=== PATIENT | male | born 1935 | race Caucasian/White ===

== ENCOUNTER → 2017-03-28 | Outpatient (CLI) | payer MEDICARE ==
[~2017-03-28] MED LIST: REGADENOSON 0.4 MG/5 ML SYRINGE ONE
== END | disposition home or self-care (01) ==
LOC: CFH 12:11
PROVIDERS: ATTEND Internal Medicine Cardiovascular Disease
DX: I48.1 Persistent atrial fibrillation (principal); R94.31 Abnormal electrocardiogram [ECG] [EKG]; I10 Essential (primary) hypertension
CPT/HCPCS: 78452; 93017; A9502; J2785

== ENCOUNTER → 2017-06-21 | Outpatient (CLI) | payer MEDICARE ==
[2017-06-21 15:48] LABS: ASPARTATE AMINO TRANSFERASE 25 U/L (15-37); BLOOD UREA NITROGEN 15 mg/dL (7-18)
== END | disposition home or self-care (01) ==
LOC: CFH 13:24
PROVIDERS: ATTEND Internal Medicine Cardiovascular Disease
DX: E78.2 Mixed hyperlipidemia (principal); I10 Essential (primary) hypertension; I48.0 Paroxysmal atrial fibrillation; I48.1 Persistent atrial fibrillation
CPT/HCPCS: 36415; 80053; 85025

== ENCOUNTER 2017-08-08 11:32 | Inpatient (IN) | payer MEDICARE ==
[2017-08-03 14:49] VITALS: BP 153/76
[~2017-08-08] VITALS: Ht 180.3 cm; Wt 95.7 kg
[~2017-08-08 11:32] MED LIST changes: +ALLO300T PO; +ATOR20TA PO; +BUPIVACAINE/PF 0.25% ONE; +EPINEPHRINE 1 MG/ML, 1ML ONE; +HYDR12.58 PO; +IRBE300T16 PO; +KETOROLAC 60 MG/2 ML ONE; +POTASSIUM PO; -REGADENOSON 0.4 MG/5 ML SYRINGE ONE; +RIVA20TA PO; +ROPIvacaine/PF 0.2%, 20 ML ONE; +SODIUM CHLORIDE 0.9% 50 ML ONE; +TRANEXAMIC ACID 100 MG/ML, 10ML ONE
[2017-08-08] MEDS ORDERED: MIDAZOLAM 1 MG/ML, 2ML ONE (11:36)
[2017-08-08] MEDS ORDERED: FENTANYL PF 100 MCG/2ML ONE ×3 (11:36→17:01)
[2017-08-08] MEDS: VANCOMYCIN PER PHARMACY MC STA ×2 (11:59→13:20)
[2017-08-08] MEDS ORDERED: LACTATED RINGERS 1,000 ML IV SCH (12:38)
[2017-08-08] MEDS ORDERED: VANCOMYCIN 1,500 MG in SODIUM CHLORIDE 0.9% 250 ML IV ONE (13:00)
[2017-08-08] MEDS ORDERED: LIDOCAINE 1%, 2ML SQ PRN (13:00)
[2017-08-08] MEDS ORDERED: VANCOMYCIN 1,000 MG ONE (13:22)
[2017-08-08] MEDS ORDERED: CEFAZOLIN 1,000 MG ONE (13:34)
[2017-08-08] MEDS ORDERED: SUCCINYLCHOLINE 20 MG/ML, 10ML ONE (13:34)
[2017-08-08] MEDS ORDERED: PROPOFOL 10 MG/ML, 20ML ONE (13:34)
[2017-08-08] MEDS ORDERED: ONDANSETRON 2MG/ML, 2ML ONE (13:34)
[2017-08-08] MEDS ORDERED: DEXAMETHASONE 4 MG/ML, 5ML ONE (13:34)
[2017-08-08] MEDS ORDERED: PHENYLEPHRINE 10 MG/ML ONE (13:34)
[2017-08-08] MEDS ORDERED: HYDROmorphone 2 MG/ML, 1ML ONE (14:01)
[2017-08-08] MEDS ORDERED: hydrALAzine 20 MG/ML, 1ML IV PRN (15:00)
[2017-08-08] MEDS ORDERED: PROMETHAZINE 25 MG/ML, 1ML IV PRN (15:00)
[2017-08-08] MEDS ORDERED: ONDANSETRON 2MG/ML, 2ML IVPush PRN (15:00)
[2017-08-08] MEDS ORDERED: MIDAZOLAM 1 MG/ML, 2ML IV PRN (15:00)
[2017-08-08] MEDS ORDERED: ALBUTEROL/IPRATROPIUM 2.5MG/0.5MG, 3 ML NPPB PRN (15:00)
[2017-08-08] MEDS ORDERED: ACETAMINOPHEN 325 MG TABLET PO PRN (15:00)
[2017-08-08] MEDS ORDERED: OXYcodone 5 MG/5 ML ORAL.SOL UDC PO PRN (15:00)
[2017-08-08] MEDS ORDERED: HYDROmorphone 1 MG/ML, 1ML IV PRN ×2 (15:00→17:00)
[2017-08-08] MEDS ORDERED: LABETALOL 5MG/ML, 20ML IV PRN (15:00)
[2017-08-08] MEDS: D5%-0.45% NACL 1,000 ML IV SCH (16:53)
[2017-08-08] MEDS ORDERED: VANCOMYCIN PER PHARMACY MC PRN (17:00)
[2017-08-08] MEDS ORDERED: SCOPOLAMINE PATCH, 1.5MG PATCH.TD72 TD PRN (17:00)
[2017-08-08] MEDS ORDERED: PROMETHAZINE 12.5 MG SUPP PR PRN (17:00)
[2017-08-08] MEDS ORDERED: BISACODYL 10 MG SUPP PR PRN (17:00)
[2017-08-08] MEDS ORDERED: HYDROcodone/APAP 5/325 TABLET PO PRN (17:00)
[2017-08-08] MEDS ORDERED: SENNA/DOCUSATE TABLET PO PRN (17:00)
[2017-08-08] MEDS ORDERED: DIPHENHYDRAMINE 25 MG CAPSULE PO PRN (17:00)
[2017-08-08] MEDS ORDERED: DIAZEPAM 5 MG TABLET PO PRN (17:00)
[2017-08-08] MEDS ORDERED: MAGNESIUM HYDROXIDE 8%, 30ML UDC PO PRN (17:00)
[2017-08-08] MEDS ORDERED: ALUMINUM/MAG/SIMETHICONE 30 ML UDC PO PRN (17:00)
[2017-08-08] MEDS ORDERED: ONDANSETRON 2MG/ML, 2ML IV PRN (17:00)
[2017-08-08] MEDS ORDERED: LORazepam 1MG TABLET PO PRN (17:00)
[2017-08-08] MEDS ORDERED: ONDANSETRON 4 MG TABLET PO PRN (17:00)
[2017-08-08] MEDS ORDERED: OXYcodone IR 5MG TABLET PO PRN (17:00)
[2017-08-08] MEDS ORDERED: HYDROmorphone 1 MG/ML, 1ML ONE (17:01)
[2017-08-08] MEDS ORDERED: ACETAMINOPHEN 650 MG/20.3 ML UDC ONE (17:02)
[2017-08-08] MEDS ORDERED: OXYcodone 5 MG/5 ML ORAL.SOL UDC ONE (17:02)
[2017-08-08] MEDS ORDERED: TRANEXAMIC ACID 1,000 MG in SODIUM CHLORIDE 0.9% 100 ML IVPB ONE (17:05)
[2017-08-08] MEDS: TAMSULOSIN 0.4 MG CAP.ER.24H PO SCH (17:10)
[2017-08-08] MEDS: FENTANYL PF 100 MCG/2ML IV PRN ×2 (17:27→17:58)
[2017-08-08] MEDS ORDERED: hydrALAzine 20 MG/ML, 1ML ONE (17:29)
[2017-08-08] MEDS ORDERED: PHARMACOKINETIC CONSULTATION MC ONE (19:00)
[2017-08-08] MEDS ORDERED: PHARMACOKINETIC MONITORING MC PRN (19:00)
[2017-08-08 19:35] VITALS: BP 130/61
[2017-08-08] MEDS: CEFAZOLIN PMX 2GM/50ML 50 ML IVPB SCH (19:55)
[2017-08-08] MEDS: DOCUSATE 100 MG CAPSULE PO SCH ×2 (21:00→21:14)
[2017-08-08] MEDS ORDERED: ZOLPIDEM 5MG TABLET PO PRN (21:00)
[2017-08-08] MEDS: ATORVASTATIN 20 MG TABLET PO SCH (21:14)
[2017-08-09] MEDS: D5%-0.45% NACL 1,000 ML IV SCH ×3 (00:58→20:11)
[2017-08-09 02:32] VITALS: BP 109/59
[2017-08-09] MEDS: CEFAZOLIN PMX 2GM/50ML 50 ML IVPB SCH ×3 (03:53→20:11)
[2017-08-09 05:21] LABS: BLOOD UREA NITROGEN 31 mg/dL (7-18)
[2017-08-09 08:00] VITALS: BP 130/69
[2017-08-09] MEDS: ALLOPURINOL 300 MG TABLET PO SCH (08:55)
[2017-08-09] MEDS: DOCUSATE 100 MG CAPSULE PO SCH ×2 (08:55→20:11)
[2017-08-09] MEDS: RIVAROXABAN 20 MG TABLET PO SCH (08:55)
[2017-08-09] MEDS: HYDROCHLOROTHIAZIDE 12.5 MG CAPSULE PO SCH (08:55)
[2017-08-09] MEDS: TAMSULOSIN 0.4 MG CAP.ER.24H PO SCH (08:56)
[2017-08-09] MEDS ORDERED: RIVAROXABAN 10 MG TABLET PO SCH (09:00)
[2017-08-09] MEDS ORDERED: VANCOMYCIN 1,700 MG in SODIUM CHLORIDE 0.9% 250 ML IV SCH (12:00)
[2017-08-09 14:00] VITALS: BP 116/47
[2017-08-09] MEDS: KETOROLAC 30 MG/1 ML IV SCH (17:52)
[2017-08-09] MEDS: ATORVASTATIN 20 MG TABLET PO SCH (20:11)
[2017-08-09 20:58] VITALS: BP 112/62
[2017-08-10] MEDS: KETOROLAC 30 MG/1 ML IV SCH ×2 (01:00→09:14)
[2017-08-10 02:55] VITALS: BP 124/68
[2017-08-10] MEDS: D5%-0.45% NACL 1,000 ML IV SCH (04:23)
[2017-08-10] MEDS: CEFAZOLIN PMX 2GM/50ML 50 ML IVPB SCH ×2 (04:23→12:06)
[2017-08-10 07:40] VITALS: BP 144/83
[2017-08-10] MEDS: RIVAROXABAN 20 MG TABLET PO SCH (09:14)
[2017-08-10] MEDS: HYDROCHLOROTHIAZIDE 12.5 MG CAPSULE PO SCH (09:14)
[2017-08-10] MEDS: TAMSULOSIN 0.4 MG CAP.ER.24H PO SCH (09:14)
[2017-08-10] MEDS: DOCUSATE 100 MG CAPSULE PO SCH (09:14)
[2017-08-10] MEDS: ALLOPURINOL 300 MG TABLET PO SCH (09:14)
[2017-08-10] MEDS ORDERED: ASPI-496 PO (09:52)
[2017-08-10] MEDS ORDERED: AMOXICILLIN 500 MG CAPSULE PO SCH (12:00)
[2017-08-10 12:10] VITALS: BP 122/66
[2017-08-10] MEDS ORDERED: TRAM50TA2 PO (12:47)
[2017-08-10] MEDS ORDERED: AMOX-291 PO (12:48)
== END 2017-08-10 13:10 | disposition home health service (06) | DRG 467 ==
LOC: ORIP 11:32 → 4NOR 18:30 → DCLOUNGE 08-10 12:45
PROVIDERS: ADMIT Orthopaedic Surgery; ATTEND Orthopaedic Surgery
PROC: 0SRC0J9 Replacement of Right Knee Joint with Synthetic Substitute, Cemented, Open Approach (ICD-10-PCS; 2017-08-08)
PROC: 0SPC08Z Removal of Spacer from Right Knee Joint, Open Approach (ICD-10-PCS; principal; 2017-08-08 14:30)
DX: Z47.33 Aftercare following explantation of knee joint prosthesis (principal); E44.1 Mild protein-calorie malnutrition; N17.9 Acute kidney failure, unspecified; D62 Acute posthemorrhagic anemia; N18.3 Chronic kidney disease, stage 3 (moderate); I12.9 Hypertensive chronic kidney disease with stage 1 through stage 4 chronic kidney disease, or unspecified chronic kidney disease; Z87.891 Personal history of nicotine dependence; Z98.890 Other specified postprocedural states; Y83.1 Surgical operation with implant of artificial internal device as the cause of abnormal reaction of the patient, or of later complication, without mention of misadventure at the time of the procedure; E78.5 Hyperlipidemia, unspecified
CPT/HCPCS: 36415; 80048; 82040; 85018; 87070; 87075; 87205; C1713; J0171; J0690; J1100; J1170; J1885; J2250; J2405; J2704; J2795; J3010; J3370; J3490; C1776; J0330; J0360; J2370; J7050; J7120

== ENCOUNTER 2019-02-26 17:04 | Inpatient (IN) | payer MEDICARE ==
[~2019-02-26] VITALS: Ht 180.3 cm; Wt 97.4 kg
[~2019-02-26 17:04] MED LIST changes: +AMOX-291 PO; +ASPI-496 PO; -BUPIVACAINE/PF 0.25% ONE; -EPINEPHRINE 1 MG/ML, 1ML ONE; -HYDR12.58 PO; +HYDROCHLOROTH12.5 MG PO; -KETOROLAC 60 MG/2 ML ONE; -ROPIvacaine/PF 0.2%, 20 ML ONE; -SODIUM CHLORIDE 0.9% 50 ML ONE; +TRAM50TA2 PO; -TRANEXAMIC ACID 100 MG/ML, 10ML ONE
--- NOTE | 2019-02-26 17:23 | NUR ---
FEVER AND WEAKNESS X "A FEW DAYS", PT FOUND DOWN BY FRIEND AFTER FALL AND UNABLE TO GET UP, APPROX DOWN X24H, HX A FIB, HTN, HLD. ON ELAQUIS. PUPILS UNEQUAL PER PT AND FAM THIS IS BASELINE AFTER RETINAL SURGERY, ALSO HAVING DIARRHEA WHICH IS BASELINE AFTER COLON SURGERY. FAMILY AND FRIEND AT BEDSIDE. PT PLACED ON MONITOR, EKG DONE. MD AT BEDSIDE
[2019-02-26] MEDS ORDERED: APIX2.5T PO (17:35)
[2019-02-26 17:53] LABS: MEAN CORPUSCULAR HEMOGLOBIN 31.3 pg (27.5-34.5); MEAN CORPUSCULAR HGB CONC 33.3 g/dL (33.2-36.2); PLATELET COUNT 272 x10^3/uL (130-400); RED BLOOD COUNT 4.26 x10^6/uL (4.38-5.82); RED CELL DISTRIBUTION WIDTH 16.9 % (9.4-14.8)
--- NOTE | 2019-02-26 17:58 | NUR ---
PT "TRYING TO PEE", URINAL AT BEDSIDE
[2019-02-26] MEDS ORDERED: SODIUM CHLORIDE 0.9% 1,000ML IVBOLUS ONE ×4 (18:00→20:00)
[2019-02-26 18:02] LABS: ALBUMIN 3.4 g/dL (3.4-5.0); ANION GAP 13 mmol/L (5-15); CALCIUM 9.1 mg/dL (8.5-10.1); CHLORIDE 100 mmol/L (98-107)
--- NOTE | 2019-02-26 18:11 | NUR ---
PT TO CT
[2019-02-26 18:12] LABS: MD YES
[2019-02-26 18:16] LABS: ALANINE AMINOTRANSFERASE 66 U/L (12-78); ALKALINE PHOSPHATASE 126 U/L (45-117); BILIRUBIN,TOTAL 0.9 mg/dL (0.2-1.0); CREATINE KINASE, TOTAL 2938 U/L (39-308); CREATININE 2.86 mg/dL (0.7-1.3); TOTAL PROTEIN 7.7 g/dL (6.4-8.2)
[2019-02-26 18:17] LABS: BAND#(MANUAL) 3.77 x10^3/uL; BANDS%(MANUAL) 17 % (0-7); LYMPH#(MANUAL) 1.55 x10^3/uL (1-3.4); LYMPHS% (MANUAL) 7 % (22-44); MONOS#(MANUAL) 0.22 x10^3/uL (0.3-2.7); MONOS% (MANUAL) 1 % (2-9); SEG#(MANUAL) 16.65 x10^3/uL (1.8-6.8); SEGS% (MANUAL) 75 % (42-75)
[2019-02-26 18:19] LABS: ANISOCYTOSIS 1+; OVALOCYTES 1+
[2019-02-26 18:20] LABS: <PLATELET ESTIMATE> ADEQUATE; <PLT MORPHOLOGY> NORMAL PLT MORPH
[2019-02-26 18:21] LABS: ECHINOCYTES 1+
--- NOTE | 2019-02-26 18:53 | NUR ---
PT REPORT FROM RITU MUNIZ. THIS RN TO ASSUME CARE OF PT. NO IMMEDIATE NEEDS. ATTEMPTING UA AT THIS TIME.
[2019-02-26] MEDS ORDERED: SODIUM CHLORIDE FLUSH 10ML SYR IVF ONE (19:00)
--- NOTE | 2019-02-26 19:10 | NUR ---
VERBAL ORDER OF STRAIGHT CATH. THIS RN ACCOMPLISHED STRAIGHT CATH W/ STERILE PROCEDURE. APPROXIMATELY 600 ML OF URINE OUTPUT ACHIEVED.
[2019-02-26 19:32] LABS: CULTURE INDICATED? YES; MICROSCOPIC INDICATED
[2019-02-26] MEDS ORDERED: CEFTRIAXONE PMX 1GM/50ML 50 ML ONE (19:43)
[2019-02-26] MEDS ORDERED: SODIUM CHLORIDE 0.9% 1,000 ML IV ONE (19:52)
[2019-02-26] MEDS ORDERED: CEFTRIAXONE PMX 1GM/50ML 50 ML IV ONE ×2 (20:00→21:30)
[2019-02-26] MEDS ORDERED: SODIUM CHLORIDE FLUSH 10ML SYR IVF PRN (20:00)
[2019-02-26] MEDS ORDERED: LIDODERM 5% PATCH TD PRN (21:00)
[2019-02-26] MEDS ORDERED: ONDANSETRON ODT 4 MG PO PRN (21:00)
[2019-02-26] MEDS ORDERED: PHARMACY MAY ADJ FOR RENAL FX MC PRN (21:00)
[2019-02-26] MEDS ORDERED: DOCUSATE 100 MG CAPSULE PO PRN (21:00)
[2019-02-26] MEDS ORDERED: LABETALOL 5 MG/ML SYRINGE IVPush PRN (21:00)
[2019-02-26] MEDS ORDERED: NS + 40MEQ KCL 1,000 ML IV SCH (21:30)
[2019-02-26 22:59] LABS: TROPONIN I 0.101 ng/mL (0.000-0.045)
[2019-02-27] MEDS: APIXABAN 2.5 MG TABLET PO SCH ×3 (00:13→20:12)
[2019-02-27 01:22] VITALS: BP 134/63
[2019-02-27 05:47] LABS: ANION GAP 13 mmol/L (5-15); CALCIUM 8.4 mg/dL (8.5-10.1); CHLORIDE 103 mmol/L (98-107); CREATININE 2.16 mg/dL (0.7-1.3)
[2019-02-27 05:51] LABS: FREE T4 (FREE THYROXINE) 1.28 ng/dL (0.76-1.46); TROPONIN I 0.076 ng/mL (0.000-0.045)
[2019-02-27 05:53] LABS: MEAN CORPUSCULAR HEMOGLOBIN 30.9 pg (27.5-34.5); MEAN CORPUSCULAR HGB CONC 32.7 g/dL (33.2-36.2); MEAN CORPUSCULAR VOLUME 94.6 fL (81-97); MEAN PLATELET VOLUME 7.9 fL (7.4-10.4); PLATELET COUNT 237 x10^3/uL (130-400); RED BLOOD COUNT 3.57 x10^6/uL (4.38-5.82); RED CELL DISTRIBUTION WIDTH 17.1 % (9.4-14.8)
[2019-02-27 06:01] LABS: CREATINE KINASE, TOTAL 1631 U/L (39-308); THYROID STIMULATING HORMONE 0.579 mIU/L (0.358-3.740)
[2019-02-27 07:09] LABS: MD YES
[2019-02-27 07:11] LABS: ANISOCYTOSIS 1+; BAND#(MANUAL) 0.83 x10^3/uL; BANDS%(MANUAL) 5 % (0-7); LYMPHS% (MANUAL) 6 % (22-44); MONOS% (MANUAL) 3 % (2-9); POLYCHROMASIA 1+; SEG#(MANUAL) 14.28 x10^3/uL (1.8-6.8); SEGS% (MANUAL) 86 % (42-75)
[2019-02-27 07:12] LABS: <PLATELET ESTIMATE> ADEQUATE; <PLT MORPHOLOGY> NORMAL PLT MORPH; OVALOCYTES 1+
[2019-02-27 07:55] VITALS: BP 94/52
[2019-02-27] MEDS ORDERED: POTASSIUM CHLORIDE 20 MEQ TAB.ER.PRT PO ONE ×3 (08:00→16:00)
[2019-02-27] MEDS ORDERED: PHARMACOKINETIC CONSULTATION MC ONE (10:00)
[2019-02-27] MEDS ORDERED: VANCOMYCIN PER PHARMACY MC PRN (10:00)
[2019-02-27] MEDS ORDERED: VANCOMYCIN 1,800 MG in SODIUM CHLORIDE 0.9% 250 ML IV SCH (10:00)
[2019-02-27] MEDS ORDERED: PHARMACOKINETIC MONITORING MC PRN (10:00)
[2019-02-27 10:49] LABS: MEAN CORPUSCULAR HEMOGLOBIN 30.8 pg (27.5-34.5); MEAN CORPUSCULAR HGB CONC 32.8 g/dL (33.2-36.2); MEAN CORPUSCULAR VOLUME 93.9 fL (81-97); MEAN PLATELET VOLUME 8.5 fL (7.4-10.4); PLATELET COUNT 248 x10^3/uL (130-400); RED BLOOD COUNT 3.61 x10^6/uL (4.38-5.82); RED CELL DISTRIBUTION WIDTH 17.4 % (9.4-14.8)
[2019-02-27 10:58] LABS: ALBUMIN 2.7 g/dL (3.4-5.0); ANION GAP 15 mmol/L (5-15); CALCIUM 8.5 mg/dL (8.5-10.1); CHLORIDE 104 mmol/L (98-107)
[2019-02-27 11:00] LABS: CHOL/HDL RATIO 2.6
[2019-02-27 11:02] LABS: ALANINE AMINOTRANSFERASE 77 U/L (12-78); ALKALINE PHOSPHATASE 111 U/L (45-117); BILIRUBIN,TOTAL 0.9 mg/dL (0.2-1.0); CREATININE 2.25 mg/dL (0.7-1.3); TOTAL PROTEIN 6.6 g/dL (6.4-8.2)
[2019-02-27 11:22] LABS: BASOPHILS % (AUTO) 0 % (0-1); EOSINOPHILS # (AUTO) 0.01 x10^3/uL (0-0.4); EOSINOPHILS % (AUTO) 0 % (1-7); LYMPHOCYTES % (AUTO) 4 % (22-44); MD SCAN; MONOCYTES # (AUTO) 0.59 x10^3/uL (0.2-0.8); MONOCYTES % (AUTO) 4 % (2-9); NEUTROPHILS # (AUTO) 15.72 x10^3/uL (1.8-6.8); NEUTROPHILS % (AUTO) 92 % (42-75)
[2019-02-27 12:44] LABS: INTERNATIONAL NORMALIZED RATIO 1.16 (0.93-1.1); PROTHROMBIN TIME 12.1 Seconds (9.6-11.5)
[2019-02-27] MEDS: SODIUM BICARBONATE 650 MG TABLET PO SCH ×2 (13:14→20:12)
[2019-02-27 13:38] VITALS: BP 116/68
[2019-02-27] MEDS: POTASSIUM CHLORIDE 40 MEQ in LACTATED RINGERS 1,000 ML IV SCH (14:09)
[2019-02-27 15:11] LABS: ALBUMIN 2.5 g/dL (3.4-5.0); ANION GAP 11 mmol/L (5-15); CALCIUM 8.3 mg/dL (8.5-10.1); CHLORIDE 104 mmol/L (98-107); CREATININE 2.24 mg/dL (0.7-1.3)
[2019-02-27 19:45] VITALS: BP 111/63
[2019-02-27] MEDS ORDERED: CEFTRIAXONE PMX 2GM/50ML 50 ML IV SCH (20:00)
[2019-02-27] MEDS: ATORVASTATIN 20 MG TABLET PO SCH (20:12)
[2019-02-27] MEDS: TEMAZEPAM 15 MG CAPSULE PO PRN (21:35)
[2019-02-28 00:16] VITALS: BP 116/72
[2019-02-28] MEDS: POTASSIUM CHLORIDE 40 MEQ in LACTATED RINGERS 1,000 ML IV SCH (00:47)
[2019-02-28 05:52] LABS: MEAN CORPUSCULAR HEMOGLOBIN 30.6 pg (27.5-34.5); MEAN CORPUSCULAR VOLUME 92.9 fL (81-97); MEAN PLATELET VOLUME 8.3 fL (7.4-10.4); PLATELET COUNT 264 x10^3/uL (130-400); RED BLOOD COUNT 3.63 x10^6/uL (4.38-5.82); RED CELL DISTRIBUTION WIDTH 17.4 % (9.4-14.8)
[2019-02-28 06:01] LABS: ALANINE AMINOTRANSFERASE 98 U/L (12-78); ALBUMIN 2.6 g/dL (3.4-5.0); ANION GAP 13 mmol/L (5-15); CALCIUM 8.7 mg/dL (8.5-10.1); CHLORIDE 106 mmol/L (98-107)
[2019-02-28 06:03] LABS: ALKALINE PHOSPHATASE 130 U/L (45-117); BILIRUBIN,TOTAL 0.8 mg/dL (0.2-1.0); CREATININE 1.99 mg/dL (0.7-1.3); TOTAL PROTEIN 6.6 g/dL (6.4-8.2)
[2019-02-28 06:28] LABS: BASOPHILS # (AUTO) 0.01 x10^3/uL (0-0.1); BASOPHILS % (AUTO) 0 % (0-1); EOSINOPHILS % (AUTO) 0 % (1-7); LYMPHOCYTES % (AUTO) 6 % (22-44); MD SCAN; MONOCYTES # (AUTO) 0.56 x10^3/uL (0.2-0.8); MONOCYTES % (AUTO) 4 % (2-9); NEUTROPHILS # (AUTO) 14.52 x10^3/uL (1.8-6.8); NEUTROPHILS % (AUTO) 90 % (42-75)
[2019-02-28 08:14] VITALS: BP 146/67
[2019-02-28] MEDS: APIXABAN 2.5 MG TABLET PO SCH ×2 (11:04→20:09)
[2019-02-28] MEDS: SODIUM BICARBONATE 650 MG TABLET PO SCH ×2 (11:04→20:09)
[2019-02-28 13:43] LABS: HCT (SEDRATE) 32.9 % (39.2-51.8)
[2019-02-28] MEDS ORDERED: VANCOMYCIN 1,800 MG in SODIUM CHLORIDE 0.9% 250 ML IV ONE (14:00)
[2019-02-28 14:35] VITALS: BP 127/78
[2019-02-28 19:22] VITALS: BP 133/84
[2019-02-28] MEDS: ACETAMINOPHEN 325 MG TABLET PO PRN (20:09)
[2019-02-28] MEDS: ATORVASTATIN 20 MG TABLET PO SCH (20:09)
[2019-03-01 00:57] VITALS: BP 117/81
[2019-03-01 04:26] LABS: BASOPHILS % (AUTO) 0 % (0-1); EOSINOPHILS # (AUTO) 0.01 x10^3/uL (0-0.4); EOSINOPHILS % (AUTO) 0 % (1-7); LYMPHOCYTES # (AUTO) 1.05 x10^3/uL (1-3.4); LYMPHOCYTES % (AUTO) 6 % (22-44); MD NO; MEAN CORPUSCULAR HEMOGLOBIN 31.3 pg (27.5-34.5); MEAN CORPUSCULAR HGB CONC 32.9 g/dL (33.2-36.2); MEAN CORPUSCULAR VOLUME 95.1 fL (81-97); MEAN PLATELET VOLUME 8.4 fL (7.4-10.4); MONOCYTES # (AUTO) 0.51 x10^3/uL (0.2-0.8); MONOCYTES % (AUTO) 3 % (2-9); NEUTROPHILS % (AUTO) 91 % (42-75); PLATELET COUNT 270 x10^3/uL (130-400); RED BLOOD COUNT 3.42 x10^6/uL (4.38-5.82); RED CELL DISTRIBUTION WIDTH 17.5 % (9.4-14.8)
[2019-03-01 04:32] LABS: ALBUMIN 2.3 g/dL (3.4-5.0); ANION GAP 8 mmol/L (5-15); CALCIUM 8.6 mg/dL (8.5-10.1); CHLORIDE 110 mmol/L (98-107)
[2019-03-01 04:42] LABS: ALANINE AMINOTRANSFERASE 127 U/L (12-78); ALKALINE PHOSPHATASE 146 U/L (45-117); BILIRUBIN,TOTAL 0.6 mg/dL (0.2-1.0); CREATINE KINASE, TOTAL 257 U/L (39-308); CREATININE 1.94 mg/dL (0.7-1.3); TOTAL PROTEIN 6.2 g/dL (6.4-8.2)
[2019-03-01 07:40] VITALS: BP 148/77
[2019-03-01] MEDS: SODIUM BICARBONATE 650 MG TABLET PO SCH ×2 (07:42→21:23)
[2019-03-01] MEDS: APIXABAN 2.5 MG TABLET PO SCH ×2 (07:42→21:22)
[2019-03-01] MEDS ORDERED: CEFAZOLIN 2,000 MG in SODIUM CHLORIDE 0.9% 50 ML IV SCH (10:30)
[2019-03-01] MEDS ORDERED: PHARMACY MAY ADJ FOR RENAL FX MC PRN (10:30)
[2019-03-01] MEDS ORDERED: CEFAZOLIN PMX 1GM/50ML 50 ML IV SCH (11:00)
[2019-03-01 13:06] VITALS: BP 164/72
--- NOTE | 2019-03-01 13:58 | NUR ---
REC: Regular diet with thin liquids; aspiration precautions Addendum: 03/01/19 at 1358 by Marjan KAPADIA Amended: Links added.
[2019-03-01] MEDS: CEFAZOLIN 2,000 MG in SODIUM CHLORIDE 0.9% 50 ML IV SCH (16:20)
[2019-03-01 18:20] VITALS: BP 155/73
[2019-03-01] MEDS: ATORVASTATIN 20 MG TABLET PO SCH (21:22)
[2019-03-01] MEDS: ACETAMINOPHEN 325 MG TABLET PO PRN (22:06)
[2019-03-02 02:26] VITALS: BP 127/74
[2019-03-02] MEDS: CEFAZOLIN 2,000 MG in SODIUM CHLORIDE 0.9% 50 ML IV SCH ×3 (04:11→19:55)
[2019-03-02 06:02] LABS: BASOPHILS % (AUTO) 0 % (0-1); EOSINOPHILS # (AUTO) 0.02 x10^3/uL (0-0.4); EOSINOPHILS % (AUTO) 0 % (1-7); LYMPHOCYTES # (AUTO) 1.18 x10^3/uL (1-3.4); LYMPHOCYTES % (AUTO) 9 % (22-44); MD NO; MEAN CORPUSCULAR HGB CONC 33.1 g/dL (33.2-36.2); MEAN CORPUSCULAR VOLUME 93.7 fL (81-97); MONOCYTES # (AUTO) 0.61 x10^3/uL (0.2-0.8); MONOCYTES % (AUTO) 4 % (2-9); NEUTROPHILS % (AUTO) 87 % (42-75); PLATELET COUNT 321 x10^3/uL (130-400); RED BLOOD COUNT 3.65 x10^6/uL (4.38-5.82); RED CELL DISTRIBUTION WIDTH 17.8 % (9.4-14.8)
[2019-03-02 06:07] LABS: ALANINE AMINOTRANSFERASE 161 U/L (12-78); ALBUMIN 2.3 g/dL (3.4-5.0); ANION GAP 10 mmol/L (5-15); CALCIUM 8.9 mg/dL (8.5-10.1); CHLORIDE 109 mmol/L (98-107); CREATININE 1.56 mg/dL (0.7-1.3)
[2019-03-02 06:09] LABS: ALKALINE PHOSPHATASE 177 U/L (45-117); BILIRUBIN,TOTAL 0.7 mg/dL (0.2-1.0); TOTAL PROTEIN 6.3 g/dL (6.4-8.2)
[2019-03-02 06:44] VITALS: BP 148/99
[2019-03-02] MEDS: SODIUM BICARBONATE 650 MG TABLET PO SCH ×2 (08:26→19:53)
[2019-03-02] MEDS: APIXABAN 2.5 MG TABLET PO SCH ×2 (08:26→19:54)
[2019-03-02 12:29] VITALS: BP 144/89
[2019-03-02] MEDS ORDERED: POTASSIUM CHLORIDE 20 MEQ TAB.ER.PRT PO ONE (13:30)
[2019-03-02] MEDS: NEUTRA PHOS K 250 MG TABLET PO SCH ×2 (16:55→19:54)
[2019-03-02] MEDS: ACETAMINOPHEN 325 MG TABLET PO PRN (19:54)
[2019-03-02] MEDS: ATORVASTATIN 20 MG TABLET PO SCH (19:54)
[2019-03-02 20:10] VITALS: BP 172/90
[2019-03-02 21:46] VITALS: BP 134/75
[2019-03-03 02:20] VITALS: BP 151/79
[2019-03-03] MEDS: ACETAMINOPHEN 325 MG TABLET PO PRN ×2 (03:59→21:04)
[2019-03-03] MEDS: CEFAZOLIN 2,000 MG in SODIUM CHLORIDE 0.9% 50 ML IV SCH ×3 (04:33→21:03)
[2019-03-03 05:15] LABS: MEAN CORPUSCULAR HEMOGLOBIN 30.1 pg (27.5-34.5); MEAN CORPUSCULAR HGB CONC 32.4 g/dL (33.2-36.2); MEAN CORPUSCULAR VOLUME 93.1 fL (81-97); PLATELET COUNT 343 x10^3/uL (130-400); RED BLOOD COUNT 3.48 x10^6/uL (4.38-5.82); RED CELL DISTRIBUTION WIDTH 17.4 % (9.4-14.8)
[2019-03-03 05:17] LABS: HCT (SEDRATE) 32.2 % (39.2-51.8)
[2019-03-03 05:32] LABS: ALBUMIN 2.1 g/dL (3.4-5.0); ANION GAP 10 mmol/L (5-15); CALCIUM 8.3 mg/dL (8.5-10.1); CHLORIDE 110 mmol/L (98-107)
[2019-03-03 05:41] LABS: ALANINE AMINOTRANSFERASE 99 U/L (12-78); ALKALINE PHOSPHATASE 187 U/L (45-117); BILIRUBIN,TOTAL 0.8 mg/dL (0.2-1.0); CREATININE 1.55 mg/dL (0.7-1.3); TOTAL PROTEIN 5.7 g/dL (6.4-8.2)
[2019-03-03 05:43] LABS: BASOPHILS # (AUTO) 0.03 x10^3/uL (0-0.1); BASOPHILS % (AUTO) 0 % (0-1); EOSINOPHILS # (AUTO) 0.03 x10^3/uL (0-0.4); EOSINOPHILS % (AUTO) 0 % (1-7); LYMPHOCYTES # (AUTO) 1.15 x10^3/uL (1-3.4); LYMPHOCYTES % (AUTO) 7 % (22-44); MD SCAN; MONOCYTES # (AUTO) 0.42 x10^3/uL (0.2-0.8); MONOCYTES % (AUTO) 3 % (2-9); NEUTROPHILS # (AUTO) 14.34 x10^3/uL (1.8-6.8); NEUTROPHILS % (AUTO) 90 % (42-75)
[2019-03-03 08:12] VITALS: BP 135/78
[2019-03-03] MEDS: SODIUM CHLORIDE 0.45% 1,000 ML IV SCH ×3 (08:30→21:07)
[2019-03-03] MEDS: NEUTRA PHOS K 250 MG TABLET PO SCH (09:19)
[2019-03-03] MEDS: APIXABAN 2.5 MG TABLET PO SCH ×2 (09:19→21:03)
[2019-03-03] MEDS: SODIUM BICARBONATE 650 MG TABLET PO SCH ×2 (09:20→21:03)
[2019-03-03 12:12] VITALS: BP 149/77
[2019-03-03 19:45] VITALS: BP 158/81
[2019-03-03] MEDS: TEMAZEPAM 15 MG CAPSULE PO PRN (21:03)
[2019-03-03] MEDS: ATORVASTATIN 20 MG TABLET PO SCH (21:04)
[2019-03-04] MEDS: CEFAZOLIN 2,000 MG in SODIUM CHLORIDE 0.9% 50 ML IV SCH ×2 (04:04→14:29)
[2019-03-04 04:21] LABS: BASOPHILS % (AUTO) 0 % (0-1); EOSINOPHILS # (AUTO) 0.57 x10^3/uL (0-0.4); EOSINOPHILS % (AUTO) 4 % (1-7); LYMPHOCYTES # (AUTO) 1.52 x10^3/uL (1-3.4); LYMPHOCYTES % (AUTO) 10 % (22-44); MD NO; MEAN CORPUSCULAR HGB CONC 32.9 g/dL (33.2-36.2); MEAN PLATELET VOLUME 7.9 fL (7.4-10.4); MONOCYTES # (AUTO) 0.48 x10^3/uL (0.2-0.8); MONOCYTES % (AUTO) 3 % (2-9); NEUTROPHILS # (AUTO) 12.69 x10^3/uL (1.8-6.8); NEUTROPHILS % (AUTO) 83 % (42-75); PLATELET COUNT 335 x10^3/uL (130-400); RED BLOOD COUNT 3.29 x10^6/uL (4.38-5.82)
[2019-03-04 04:34] LABS: ANION GAP 8 mmol/L (5-15); CALCIUM 7.9 mg/dL (8.5-10.1); CHLORIDE 108 mmol/L (98-107)
[2019-03-04 04:38] LABS: ALANINE AMINOTRANSFERASE 38 U/L (12-78); ALKALINE PHOSPHATASE 177 U/L (45-117); BILIRUBIN,TOTAL 1.1 mg/dL (0.2-1.0); CREATININE 1.43 mg/dL (0.7-1.3); TOTAL PROTEIN 5.4 g/dL (6.4-8.2)
[2019-03-04 05:25] VITALS: BP 150/78
[2019-03-04 07:25] VITALS: BP 134/67
[2019-03-04] MEDS ORDERED: POTASSIUM CHLORIDE 20 MEQ TAB.ER.PRT PO ONE (08:30)
[2019-03-04] MEDS ORDERED: FOLIC ACID 1 MG TABLET PO SCH (10:00)
[2019-03-04] MEDS ORDERED: THIAMINE 100MG TABLET PO SCH (10:00)
[2019-03-04] MEDS: SODIUM BICARBONATE 650 MG TABLET PO SCH (10:33)
[2019-03-04] MEDS: SODIUM CHLORIDE 0.45% 1,000 ML IV SCH ×2 (10:33→16:30)
[2019-03-04] MEDS: APIXABAN 2.5 MG TABLET PO SCH (10:33)
[2019-03-04] MEDS ORDERED: CEFA2PIG7 IV (11:56)
[2019-03-04] MEDS ORDERED: FOLI-17 PO (11:56)
[2019-03-04] MEDS ORDERED: THIA100T67 PO (11:56)
[2019-03-04 13:28] VITALS: BP 135/61
== END 2019-03-04 18:12 | DRG 871 ==
LOC: ED 20:39 → 4WST 20:40
PROVIDERS: ADMIT Internal Medicine; ATTEND Internal Medicine
PROC: 02HV33Z Insertion of Infusion Device into Superior Vena Cava, Percutaneous Approach (ICD-10-PCS; principal; 2019-03-03)
PROC: B5181ZA Fluoroscopy of Superior Vena Cava using Low Osmolar Contrast, Guidance (ICD-10-PCS; 2019-03-03)
PROC: B548ZZA Ultrasonography of Superior Vena Cava, Guidance (ICD-10-PCS; 2019-03-03)
DX: A41.01 Sepsis due to Methicillin susceptible Staphylococcus aureus (principal); N17.0 Acute kidney failure with tubular necrosis; K85.90 Acute pancreatitis without necrosis or infection, unspecified; D68.69 Other thrombophilia; E87.1 Hypo-osmolality and hyponatremia; I48.1 Persistent atrial fibrillation; M62.82 Rhabdomyolysis; N12 Tubulo-interstitial nephritis, not specified as acute or chronic; Z66 Do not resuscitate; Z96.651 Presence of right artificial knee joint; R65.20 Severe sepsis without septic shock; E78.5 Hyperlipidemia, unspecified; E87.6 Hypokalemia; H91.93 Unspecified hearing loss, bilateral; I11.9 Hypertensive heart disease without heart failure; I48.0 Paroxysmal atrial fibrillation; K52.9 Noninfective gastroenteritis and colitis, unspecified; K76.0 Fatty (change of) liver, not elsewhere classified; M10.9 Gout, unspecified; W06.XXXA Fall from bed, initial encounter; Y92.009 Unspecified place in unspecified non-institutional (private) residence as the place of occurrence of the external cause; Z79.01 Long term (current) use of anticoagulants; Z87.891 Personal history of nicotine dependence; Y93.89 Activity, other specified
CPT/HCPCS: 36415; 36573; 70450; 70551; 71045; 76700; 76770; 80048; 80053; 80061; 80202; 81001; 82040; 82550; 83036; 83605; 83690; 83735; 84100; 84145; 84439; 84443; 84484; 85025; 85610; 85651; 86140; 87040; 87077; 87086; 87147; 87186; 93005; 93306; 93880; 96361; 96365; G0378; J0690; J0696; J3370; J3480; 92522-GN; 92523-GN; C1751; G0515-GN; J7030; J7050; J7120; J7512

== ENCOUNTER 2021-04-26 10:58 | Inpatient (IN) | payer MEDICARE ==
[~2021-04-26] VITALS: Ht 180.3 cm; Wt 87.5 kg
[~2021-04-26 10:58] MED LIST changes: +APIX2.5T PO; +CEFA2PIG7 IV; +FOLI1TAB32 PO; -IRBE300T16 PO; +IRBE300T8 PO; +THIA100T67 PO
--- NOTE | 2021-04-26 11:06 | NUR ---
NAX1
[2021-04-26 12:23] LABS: BASOPHILS % (AUTO) 0 % (0-1); EOSINOPHILS % (AUTO) 0 % (1-7); LYMPHOCYTES % (AUTO) 17 % (22-44); MEAN CORPUSCULAR HEMOGLOBIN 34.3 pg (27.5-34.5); MEAN CORPUSCULAR HGB CONC 33.8 g/dL (33.2-36.2); MEAN PLATELET VOLUME 7.4 fL (7.4-10.4); MONOCYTES % (AUTO) 9 % (2-9); NEUTROPHILS % (AUTO) 73 % (42-75); PLATELET COUNT 254 x10^3/uL (130-400); RED BLOOD COUNT 2.86 x10^6/uL (4.38-5.82); RED CELL DISTRIBUTION WIDTH 15.6 % (9.4-14.8)
[2021-04-26 12:34] LABS: INTERNATIONAL NORMALIZED RATIO 1.05 (0.93-1.1); PROTHROMBIN TIME 11.2 Seconds (9.6-11.5)
--- NOTE | 2021-04-26 13:02 | NUR ---
REPORT FROM CRISTY JONES AT THIS TIME. PT'S DAUGHTER AT BEDSIDE. TM.
[2021-04-26] MEDS ORDERED: METO50TA82 PO (13:11)
[2021-04-26] MEDS ORDERED: OMEP-110 PO (13:11)
[2021-04-26] MEDS ORDERED: AMLO2.5T5 PO (13:11)
[2021-04-26] MEDS ORDERED: TRAM50TA2 PO (13:11)
[2021-04-26] MEDS ORDERED: FURO40TA6 PO (13:11)
[2021-04-26] MEDS ORDERED: POTA8CAP20 PO (13:11)
[2021-04-26] MEDS ORDERED: DOXY100T PO (13:11)
[2021-04-26] MEDS ORDERED: TRAZ-175 PO (13:11)
[2021-04-26] MEDS ORDERED: ACET325T14 PO (13:11)
[2021-04-26] MEDS ORDERED: LORazepam 2 MG/ML, 1ML ONE (15:03)
[2021-04-26] MEDS: LORazepam 2 MG/ML, 1ML IVPush PRN ×2 (15:26→22:13)
[2021-04-26] MEDS ORDERED: SODIUM CHLORIDE FLUSH 10ML SYR IVF PRN (16:30)
[2021-04-26 16:58] VITALS: BP 148/81
[2021-04-26] MEDS ORDERED: DOCUSATE 100 MG CAPSULE PO PRN (17:00)
[2021-04-26] MEDS ORDERED: ONDANSETRON ODT 4 MG PO PRN (17:00)
[2021-04-26] MEDS ORDERED: OXYcodone IR 5MG TABLET PO PRN (17:00)
[2021-04-26] MEDS ORDERED: PROMETHAZINE 25 MG/ML, 1ML IM PRN (17:00)
[2021-04-26] MEDS ORDERED: ONDANSETRON 2MG/ML, 2ML IVPush PRN (17:00)
[2021-04-26] MEDS ORDERED: LABETALOL 5MG/ML, 20ML IVPush PRN (17:00)
[2021-04-26] MEDS ORDERED: BISACODYL 10 MG SUPP PR PRN (17:00)
[2021-04-26] MEDS ORDERED: POLYETHYLENE GLYCOL 17 GM PACKET PO PRN (17:00)
[2021-04-26] MEDS ORDERED: morphine SULFATE 10 MG/ML, 1ML IVPush PRN (17:00)
[2021-04-26 18:30] LABS: MICROSCOPIC AUTO
[2021-04-26 20:21] VITALS: BP 138/72
[2021-04-26 21:32] VITALS: BP 137/66
[2021-04-26] MEDS: ATORVASTATIN 20 MG TABLET PO SCH (21:34)
[2021-04-26] MEDS: TRAZODONE 100MG TABLET PO SCH (21:34)
[2021-04-26] MEDS: DOXYCYCLINE 100MG TABLET PO SCH (21:34)
[2021-04-26] MEDS: METOPROLOL TARTRATE 25 MG TAB PO SCH (21:34)
[2021-04-27 01:45] VITALS: BP 130/78
[2021-04-27 07:17] VITALS: BP 145/64
[2021-04-27] MEDS: METOPROLOL TARTRATE 25 MG TAB PO SCH ×2 (09:00→20:32)
[2021-04-27] MEDS: OMEPRAZOLE 20 MG CAPSULE.DR PO SCH (09:00)
[2021-04-27] MEDS: AMLODIPINE 2.5 MG TABLET PO SCH (09:00)
[2021-04-27] MEDS: DOXYCYCLINE 100MG TABLET PO SCH ×2 (09:00→20:32)
[2021-04-27] MEDS: ALLOPURINOL 300 MG TABLET PO SCH (09:00)
[2021-04-27 09:58] LABS: BASOPHILS % (AUTO) 1 % (0-1); EOSINOPHILS % (AUTO) 2 % (1-7); LYMPHOCYTES % (AUTO) 19 % (22-44); MEAN CORPUSCULAR HEMOGLOBIN 33.8 pg (27.5-34.5); MEAN CORPUSCULAR HGB CONC 33.5 g/dL (33.2-36.2); MONOCYTES % (AUTO) 9 % (2-9); NEUTROPHILS % (AUTO) 70 % (42-75); PLATELET COUNT 229 x10^3/uL (130-400); RED BLOOD COUNT 2.85 x10^6/uL (4.38-5.82); RED CELL DISTRIBUTION WIDTH 15.8 % (9.4-14.8)
[2021-04-27 10:07] LABS: ALANINE AMINOTRANSFERASE 24 U/L (12-78); ANION GAP 8 mmol/L (5-15); CHLORIDE 114 mmol/L (98-107); CHOLESTEROL, TOTAL 167 mg/dL (140-239)
[2021-04-27 10:15] LABS: ALKALINE PHOSPHATASE 127 U/L (45-117); BILIRUBIN,TOTAL 0.6 mg/dL (0.2-1.0); CHOL/HDL RATIO 1.9; HDL CHOL % 53 % (26-37); HDL CHOLESTEROL (DIRECT) 88 mg/dL (40-60); LDL CHOLESTEROL,CALCULATED 67 mg/dL (54-169); LDL/HDL RATIO 0.8 (0.5-3.0); TOTAL PROTEIN 6.2 g/dL (6.4-8.2); TRIGLYCERIDES 60 mg/dL (50-200); VLDL CHOLESTEROL 12 mg/dL (0-25)
[2021-04-27] MEDS: LORazepam 2 MG/ML, 1ML IVPush PRN (10:28)
[2021-04-27 12:34] VITALS: BP 155/78
[2021-04-27 19:19] VITALS: BP 147/72
[2021-04-27 20:31] VITALS: BP 164/83
[2021-04-27] MEDS: TRAZODONE 100MG TABLET PO SCH (20:32)
[2021-04-27] MEDS: ATORVASTATIN 20 MG TABLET PO SCH (20:32)
[2021-04-27] MEDS ORDERED: POTASSIUM CHLORIDE 20 MEQ TAB.ER.PRT PO ONE (21:00)
[2021-04-27] MEDS ORDERED: POTASSIUM CHLORIDE 40 MEQ in SODIUM CHLORIDE 0.9% 500 ML IV ONE (21:00)
[2021-04-28] MEDS: LORazepam 2 MG/ML, 1ML IVPush PRN ×2 (00:10→20:09)
[2021-04-28 01:19] VITALS: BP 158/79
[2021-04-28 07:54] VITALS: BP 161/76
[2021-04-28] MEDS: AMLODIPINE 2.5 MG TABLET PO SCH (09:49)
[2021-04-28] MEDS: METOPROLOL TARTRATE 25 MG TAB PO SCH ×2 (09:49→20:09)
[2021-04-28] MEDS: ALLOPURINOL 300 MG TABLET PO SCH (09:49)
[2021-04-28] MEDS: DOXYCYCLINE 100MG TABLET PO SCH ×2 (09:49→20:09)
[2021-04-28] MEDS: OMEPRAZOLE 20 MG CAPSULE.DR PO SCH (09:49)
[2021-04-28 10:36] LABS: BASOPHILS % (AUTO) 0 % (0-1); EOSINOPHILS % (AUTO) 1 % (1-7); LYMPHOCYTES % (AUTO) 18 % (22-44); MEAN CORPUSCULAR HEMOGLOBIN 34.1 pg (27.5-34.5); MEAN CORPUSCULAR HGB CONC 33.1 g/dL (33.2-36.2); MEAN PLATELET VOLUME 7.3 fL (7.4-10.4); MONOCYTES % (AUTO) 12 % (2-9); NEUTROPHILS % (AUTO) 69 % (42-75); PLATELET COUNT 282 x10^3/uL (130-400); RED CELL DISTRIBUTION WIDTH 15.7 % (9.4-14.8)
[2021-04-28 10:42] LABS: ANION GAP 8 mmol/L (5-15); CHLORIDE 119 mmol/L (98-107); CREATININE 1.15 mg/dL (0.7-1.3)
[2021-04-28] MEDS ORDERED: POTASSIUM CHLORIDE 20 MEQ TAB.ER.PRT PO ONE (13:00)
[2021-04-28] MEDS ORDERED: POTASSIUM CHLORIDE 20 MEQ PACKET PO ONE (13:30)
[2021-04-28 13:54] VITALS: BP 159/84
[2021-04-28] MEDS: D5%-0.45NACL+KCL 20MEQ 1,000 ML IV SCH (18:41)
[2021-04-28 20:07] VITALS: BP 170/81
[2021-04-28] MEDS: TRAZODONE 100MG TABLET PO SCH (20:09)
[2021-04-28] MEDS: ATORVASTATIN 20 MG TABLET PO SCH (20:09)
[2021-04-28] MEDS ORDERED: HALOPERIDOL 5 MG/ML IM ONE (21:30)
[2021-04-29 01:15] VITALS: BP 173/98
[2021-04-29] MEDS ORDERED: LORazepam 2 MG/ML, 1ML IVPush ONE (02:00)
[2021-04-29] MEDS: hydrALAzine 20 MG/ML, 1ML IVPush PRN (03:14)
[2021-04-29] MEDS ORDERED: CHLORHEXIDINE 15 ML UDC ONE (06:06)
[2021-04-29] MEDS ORDERED: BACITRACIN 50,000 UNIT ONE (06:29)
[2021-04-29] MEDS ORDERED: BUPIVACAINE/PF 0.5% ONE (06:29)
[2021-04-29] MEDS ORDERED: EPINEPHRINE 1 MG/ML, 1ML ONE (06:29)
[2021-04-29] MEDS ORDERED: CHLORHEXIDINE 15 ML UDC PO ONE (06:30)
[2021-04-29 06:49] LABS: ANION GAP 8 mmol/L (5-15); CALCIUM 9.4 mg/dL (8.5-10.1); CHLORIDE 119 mmol/L (98-107); CREATININE 1.03 mg/dL (0.7-1.3)
[2021-04-29] MEDS ORDERED: FENTANYL PF 100 MCG/2ML ONE (07:27)
[2021-04-29] MEDS ORDERED: ACETAMINOPHEN 325 MG TABLET PO PRN (08:30)
[2021-04-29] MEDS ORDERED: METOPROLOL 1 MG/ML, 5ML IV PRN (08:30)
[2021-04-29] MEDS ORDERED: OXYcodone 5 MG/5 ML ORAL.SOL UDC PO PRN (08:30)
[2021-04-29] MEDS ORDERED: PROMETHAZINE 25 MG/ML, 1ML IVPush PRN (08:30)
[2021-04-29] MEDS ORDERED: FENTANYL PF 100 MCG/2ML IV PRN (08:30)
[2021-04-29] MEDS ORDERED: LORazepam 2 MG/ML, 1ML IVPush PRN (08:30)
[2021-04-29] MEDS ORDERED: HYDROmorphone 1 MG/ML, 1ML INJ IVPush PRN (08:30)
[2021-04-29] MEDS ORDERED: LABETALOL 5MG/ML, 20ML IV PRN (08:30)
[2021-04-29] MEDS ORDERED: PROMETHAZINE 25 MG SUPP PR PRN (08:30)
[2021-04-29] MEDS ORDERED: hydrALAzine 20 MG/ML, 1ML IV PRN (08:30)
[2021-04-29] MEDS ORDERED: ONDANSETRON 2MG/ML, 2ML IVPush PRN (08:30)
[2021-04-29] MEDS ORDERED: SUCCINYLCHOLINE 20 MG/ML, 10ML ONE (08:33)
[2021-04-29] MEDS ORDERED: CEFAZOLIN 1,000 MG ONE (08:33)
[2021-04-29] MEDS ORDERED: ROCURONIUM 10MG/ML,5ML ONE (08:33)
[2021-04-29] MEDS ORDERED: PROPOFOL 10 MG/ML, 20ML ONE (08:33)
[2021-04-29] MEDS ORDERED: DEXAMETHASONE 4 MG/ML, 1ML ONE (08:33)
[2021-04-29] MEDS ORDERED: GLYCOPYRROLATE 0.2MG/1ML, 5ML ONE (08:33)
[2021-04-29] MEDS ORDERED: NEOSTIGMINE 1 MG/ML, 10ML ONE (08:33)
[2021-04-29] MEDS ORDERED: ONDANSETRON 2MG/ML, 2ML ONE (08:33)
[2021-04-29] MEDS ORDERED: SUGAMMADEX 200 MG/2 ML IVPush ONE (08:53)
[2021-04-29] MEDS: OMEPRAZOLE 20 MG CAPSULE.DR PO SCH (09:00)
[2021-04-29] MEDS: ALLOPURINOL 300 MG TABLET PO SCH (09:00)
[2021-04-29] MEDS: AMLODIPINE 5 MG TABLET PO SCH (09:00)
[2021-04-29] MEDS: DOXYCYCLINE 100MG TABLET PO SCH (09:00)
[2021-04-29] MEDS: METOPROLOL TARTRATE 25 MG TAB PO SCH ×2 (09:00→20:05)
[2021-04-29 11:15] VITALS: BP 156/80
[2021-04-29 11:32] VITALS: BP 135/68
[2021-04-29 11:48] VITALS: BP 128/61
[2021-04-29] MEDS: D5%-0.45NACL+KCL 20MEQ 1,000 ML IV SCH (14:05)
[2021-04-29] MEDS: CEFAZOLIN PMX 1GM/50ML 50 ML IV SCH (16:46)
[2021-04-29] MEDS ORDERED: TRAZODONE 50MG TABLET ONE (19:59)
[2021-04-29] MEDS: TRAZODONE 100MG TABLET PO SCH (20:05)
[2021-04-29] MEDS: OXYcodone/APAP 5/325MG TABLET PO PRN (20:06)
[2021-04-29] MEDS: ACETAMINOPHEN 325 MG TABLET PO PRN (20:06)
[2021-04-29] MEDS: ATORVASTATIN 20 MG TABLET PO SCH (20:06)
[2021-04-30] MEDS: CEFAZOLIN PMX 1GM/50ML 50 ML IV SCH ×3 (00:12→16:32)
[2021-04-30] MEDS: D5%-0.45NACL+KCL 20MEQ 1,000 ML IV SCH (04:05)
[2021-04-30 04:51] LABS: BASOPHILS % (AUTO) 1 % (0-1); EOSINOPHILS % (AUTO) 0 % (1-7); LYMPHOCYTES % (AUTO) 10 % (22-44); MEAN CORPUSCULAR HEMOGLOBIN 33.9 pg (27.5-34.5); MEAN CORPUSCULAR HGB CONC 33.5 g/dL (33.2-36.2); MEAN PLATELET VOLUME 7.7 fL (7.4-10.4); MONOCYTES % (AUTO) 5 % (2-9); NEUTROPHILS % (AUTO) 84 % (42-75); PLATELET COUNT 248 x10^3/uL (130-400); RED BLOOD COUNT 2.86 x10^6/uL (4.38-5.82)
[2021-04-30 05:06] LABS: CHLORIDE 120 mmol/L (98-107)
[2021-04-30 05:15] LABS: ALANINE AMINOTRANSFERASE 19 U/L (12-78); ALBUMIN 2.8 g/dL (3.4-5.0); ALKALINE PHOSPHATASE 116 U/L (45-117); ANION GAP 8 mmol/L (5-15); BILIRUBIN,TOTAL 0.4 mg/dL (0.2-1.0); CALCIUM 8.8 mg/dL (8.5-10.1); CREATININE 1.15 mg/dL (0.7-1.3); TOTAL PROTEIN 6.4 g/dL (6.4-8.2)
[2021-04-30] MEDS: OXYcodone/APAP 5/325MG TABLET PO PRN ×3 (08:06→20:59)
[2021-04-30] MEDS: METOPROLOL TARTRATE 25 MG TAB PO SCH ×2 (08:24→20:59)
[2021-04-30] MEDS: AMLODIPINE 5 MG TABLET PO SCH (08:24)
[2021-04-30] MEDS: OMEPRAZOLE 20 MG CAPSULE.DR PO SCH (08:24)
[2021-04-30] MEDS: ALLOPURINOL 300 MG TABLET PO SCH (08:24)
[2021-04-30] MEDS: ATORVASTATIN 20 MG TABLET PO SCH (20:59)
[2021-04-30] MEDS: ACETAMINOPHEN 325 MG TABLET PO PRN (20:59)
[2021-04-30] MEDS ORDERED: TRAZODONE 50MG TABLET PO SCH (21:00)
[2021-05-01] MEDS: CEFAZOLIN PMX 1GM/50ML 50 ML IV SCH ×4 (00:37→23:58)
[2021-05-01] MEDS: ACETAMINOPHEN 325 MG TABLET PO PRN (02:48)
[2021-05-01] MEDS: OXYcodone/APAP 5/325MG TABLET PO PRN ×2 (02:49→09:14)
[2021-05-01] MEDS: ALLOPURINOL 300 MG TABLET PO SCH (09:13)
[2021-05-01] MEDS: METOPROLOL TARTRATE 25 MG TAB PO SCH ×2 (09:13→21:51)
[2021-05-01] MEDS: AMLODIPINE 5 MG TABLET PO SCH (09:13)
[2021-05-01] MEDS: DOXYCYCLINE 100MG TABLET PO SCH ×2 (09:14→21:00)
[2021-05-01] MEDS: LORazepam 2 MG/ML, 1ML IVPush PRN (12:23)
[2021-05-01] MEDS: hydrALAzine 20 MG/ML, 1ML IVPush PRN ×2 (12:40→16:48)
[2021-05-01] MEDS: ATORVASTATIN 20 MG TABLET PO SCH (21:51)
[2021-05-02] MEDS: LORazepam 2 MG/ML, 1ML IVPush PRN (01:46)
[2021-05-02] MEDS: hydrALAzine 20 MG/ML, 1ML IVPush PRN ×2 (04:11→15:39)
[2021-05-02] MEDS: ALLOPURINOL 300 MG TABLET PO SCH (08:58)
[2021-05-02] MEDS: METOPROLOL TARTRATE 25 MG TAB PO SCH ×2 (08:58→21:47)
[2021-05-02] MEDS: DOXYCYCLINE 100MG TABLET PO SCH (08:58)
[2021-05-02] MEDS: AMLODIPINE 5 MG TABLET PO SCH (08:58)
[2021-05-02] MEDS: CEFAZOLIN PMX 1GM/50ML 50 ML IV SCH ×2 (09:05→16:34)
[2021-05-02 09:41] LABS: BASOPHILS % (AUTO) 0 % (0-1); EOSINOPHILS % (AUTO) 2 % (1-7); LYMPHOCYTES % (AUTO) 22 % (22-44); MEAN CORPUSCULAR HEMOGLOBIN 33.5 pg (27.5-34.5); MEAN CORPUSCULAR HGB CONC 33.5 g/dL (33.2-36.2); MEAN PLATELET VOLUME 7.5 fL (7.4-10.4); MONOCYTES % (AUTO) 8 % (2-9); NEUTROPHILS % (AUTO) 67 % (42-75); PLATELET COUNT 256 x10^3/uL (130-400); RED BLOOD COUNT 3.02 x10^6/uL (4.38-5.82)
[2021-05-02 09:45] LABS: ALANINE AMINOTRANSFERASE 7 U/L (12-78); ALBUMIN 2.9 g/dL (3.4-5.0); ANION GAP 10 mmol/L (5-15); CALCIUM 9.3 mg/dL (8.5-10.1); CHLORIDE 118 mmol/L (98-107); CREATININE 1.13 mg/dL (0.7-1.3)
[2021-05-02 09:48] LABS: ALKALINE PHOSPHATASE 112 U/L (45-117); BILIRUBIN,TOTAL 0.4 mg/dL (0.2-1.0)
[2021-05-02] MEDS ORDERED: LACTULOSE 20 GM/30 ML UDC PO PRN (12:30)
[2021-05-02] MEDS ORDERED: HALOPERIDOL 5 MG/ML IV PRN (12:30)
[2021-05-02] MEDS ORDERED: morphine SULFATE 10 MG/ML, 1ML IVPush PRN (14:00)
[2021-05-02] MEDS: ATORVASTATIN 20 MG TABLET PO SCH (21:47)
[2021-05-02] MEDS: DOXYCYCLINE 50 MG/5 ML ORAL SUSP PO SCH (21:48)
[2021-05-03] MEDS: CEFAZOLIN PMX 1GM/50ML 50 ML IV SCH ×3 (01:14→16:11)
[2021-05-03] MEDS: hydrALAzine 20 MG/ML, 1ML IVPush PRN (01:17)
[2021-05-03 06:43] LABS: BASOPHILS % (AUTO) 0 % (0-1); EOSINOPHILS % (AUTO) 1 % (1-7); LYMPHOCYTES % (AUTO) 13 % (22-44); MEAN CORPUSCULAR HEMOGLOBIN 34.1 pg (27.5-34.5); MEAN CORPUSCULAR HGB CONC 33.8 g/dL (33.2-36.2); MONOCYTES % (AUTO) 8 % (2-9); NEUTROPHILS % (AUTO) 79 % (42-75); PLATELET COUNT 292 x10^3/uL (130-400); RED CELL DISTRIBUTION WIDTH 15.8 % (9.4-14.8)
[2021-05-03 07:01] LABS: ANION GAP 11 mmol/L (5-15); CALCIUM 9.4 mg/dL (8.5-10.1); CHLORIDE 118 mmol/L (98-107); CREATININE 1.21 mg/dL (0.7-1.3)
[2021-05-03] MEDS: AMLODIPINE 5 MG TABLET PO SCH (08:13)
[2021-05-03] MEDS: METOPROLOL TARTRATE 25 MG TAB PO SCH ×2 (08:13→21:22)
[2021-05-03] MEDS: DOXYCYCLINE 50 MG/5 ML ORAL SUSP PO SCH ×2 (08:13→21:22)
[2021-05-03] MEDS: ALLOPURINOL 300 MG TABLET PO SCH (08:13)
[2021-05-03] MEDS: ATORVASTATIN 20 MG TABLET PO SCH (21:22)
[2021-05-04] MEDS: CEFAZOLIN PMX 1GM/50ML 50 ML IV SCH ×2 (01:11→07:52)
[2021-05-04 05:03] LABS: ANION GAP 11 mmol/L (5-15); CALCIUM 9.7 mg/dL (8.5-10.1); CHLORIDE 118 mmol/L (98-107); CREATININE 1.24 mg/dL (0.7-1.3)
[2021-05-04] MEDS ORDERED: POTASSIUM CHLORIDE 20 MEQ TAB.ER.PRT PO ONE (06:30)
[2021-05-04] MEDS: ALLOPURINOL 300 MG TABLET PO SCH (08:09)
[2021-05-04] MEDS: METOPROLOL TARTRATE 25 MG TAB PO SCH ×2 (08:09→21:11)
[2021-05-04] MEDS: AMLODIPINE 5 MG TABLET PO SCH (08:09)
[2021-05-04] MEDS: DOXYCYCLINE 50 MG/5 ML ORAL SUSP PO SCH ×2 (08:10→21:11)
[2021-05-04 20:35] VITALS: BP 164/77
[2021-05-04] MEDS: ATORVASTATIN 20 MG TABLET PO SCH (21:10)
[2021-05-05] VITALS (7 sets, daily range): BP systolic 128–184; BP diastolic 78–103
[2021-05-05] MEDS: AMLODIPINE 5 MG TABLET PO SCH (10:10)
[2021-05-05] MEDS: METOPROLOL TARTRATE 25 MG TAB PO SCH ×2 (10:10→20:38)
[2021-05-05] MEDS: ALLOPURINOL 300 MG TABLET PO SCH (10:10)
[2021-05-05] MEDS: DOXYCYCLINE 50 MG/5 ML ORAL SUSP PO SCH ×2 (10:10→20:38)
[2021-05-05] MEDS: ATORVASTATIN 20 MG TABLET PO SCH (20:38)
[2021-05-05] MEDS: hydrALAzine 20 MG/ML, 1ML IVPush PRN (21:58)
[2021-05-06 01:01] VITALS: BP 140/80
[2021-05-06 06:04] LABS: BASOPHILS % (AUTO) 1 % (0-1); EOSINOPHILS % (AUTO) 1 % (1-7); LYMPHOCYTES % (AUTO) 16 % (22-44); MEAN CORPUSCULAR HEMOGLOBIN 33.8 pg (27.5-34.5); MEAN CORPUSCULAR HGB CONC 33.8 g/dL (33.2-36.2); MEAN PLATELET VOLUME 7.8 fL (7.4-10.4); MONOCYTES % (AUTO) 10 % (2-9); NEUTROPHILS % (AUTO) 72 % (42-75); PLATELET COUNT 242 x10^3/uL (130-400); RED BLOOD COUNT 3.06 x10^6/uL (4.38-5.82); RED CELL DISTRIBUTION WIDTH 16.1 % (9.4-14.8)
[2021-05-06 06:23] LABS: ANION GAP 8 mmol/L (5-15); CALCIUM 9.2 mg/dL (8.5-10.1); CHLORIDE 114 mmol/L (98-107); CREATININE 1.07 mg/dL (0.7-1.3)
[2021-05-06 06:58] VITALS: BP 156/90
[2021-05-06] MEDS: ALLOPURINOL 300 MG TABLET PO SCH (08:55)
[2021-05-06] MEDS: DOXYCYCLINE 50 MG/5 ML ORAL SUSP PO SCH ×2 (08:56→21:13)
[2021-05-06] MEDS: METOPROLOL TARTRATE 25 MG TAB PO SCH ×2 (08:56→21:12)
[2021-05-06] MEDS: AMLODIPINE 10 MG TAB PO SCH (08:56)
[2021-05-06 13:45] VITALS: BP 154/92
[2021-05-06 20:09] VITALS: BP 152/79
[2021-05-06] MEDS: ATORVASTATIN 20 MG TABLET PO SCH (21:11)
[2021-05-07 00:29] VITALS: BP 142/68
[2021-05-07 06:56] VITALS: BP 156/86
[2021-05-07] MEDS: METOPROLOL TARTRATE 25 MG TAB PO SCH ×2 (09:50→21:16)
[2021-05-07] MEDS: DOXYCYCLINE 50 MG/5 ML ORAL SUSP PO SCH ×2 (09:50→21:16)
[2021-05-07] MEDS: ALLOPURINOL 300 MG TABLET PO SCH (09:50)
[2021-05-07] MEDS: AMLODIPINE 10 MG TAB PO SCH (09:50)
[2021-05-07 13:56] VITALS: BP 136/69
[2021-05-07] MEDS: ATORVASTATIN 20 MG TABLET PO SCH (21:16)
[2021-05-08 00:02] VITALS: BP 135/73
[2021-05-08] MEDS: ALLOPURINOL 300 MG TABLET PO SCH (08:21)
[2021-05-08] MEDS: AMLODIPINE 10 MG TAB PO SCH (08:21)
[2021-05-08] MEDS: METOPROLOL TARTRATE 25 MG TAB PO SCH (08:21)
[2021-05-08] MEDS: DOXYCYCLINE 50 MG/5 ML ORAL SUSP PO SCH ×2 (08:22→20:06)
[2021-05-08 08:30] VITALS: BP 166/72
[2021-05-08 14:48] VITALS: BP 119/68
[2021-05-08] MEDS: ACETAMINOPHEN 325 MG TABLET PO PRN (16:24)
[2021-05-08 18:35] VITALS: BP 116/59
[2021-05-08] MEDS: ATORVASTATIN 20 MG TABLET PO SCH (20:06)
[2021-05-09 00:43] VITALS: BP 142/74
[2021-05-09 06:19] LABS: ANION GAP 7 mmol/L (5-15); CALCIUM 8.9 mg/dL (8.5-10.1); CHLORIDE 114 mmol/L (98-107); CREATININE 1.17 mg/dL (0.7-1.3)
[2021-05-09 06:23] LABS: BASOPHILS % (AUTO) 0 % (0-1); EOSINOPHILS % (AUTO) 1 % (1-7); LYMPHOCYTES % (AUTO) 20 % (22-44); MEAN CORPUSCULAR HGB CONC 34.3 g/dL (33.2-36.2); MEAN PLATELET VOLUME 7.8 fL (7.4-10.4); MONOCYTES % (AUTO) 9 % (2-9); NEUTROPHILS % (AUTO) 70 % (42-75); PLATELET COUNT 209 x10^3/uL (130-400); RED BLOOD COUNT 2.82 x10^6/uL (4.38-5.82); RED CELL DISTRIBUTION WIDTH 15.9 % (9.4-14.8)
[2021-05-09 09:27] VITALS: BP 154/92
[2021-05-09] MEDS: AMLODIPINE 10 MG TAB PO SCH (09:30)
[2021-05-09] MEDS: ALLOPURINOL 300 MG TABLET PO SCH (09:30)
[2021-05-09] MEDS: DOXYCYCLINE 50 MG/5 ML ORAL SUSP PO SCH ×2 (09:30→21:21)
[2021-05-09 14:00] VITALS: BP 150/85
[2021-05-09 20:00] VITALS: BP 140/73
[2021-05-09] MEDS: ATORVASTATIN 20 MG TABLET PO SCH (21:21)
[2021-05-10 00:31] VITALS: BP 127/64
[2021-05-10 06:32] VITALS: BP 146/68
[2021-05-10] MEDS: ALLOPURINOL 300 MG TABLET PO SCH (08:39)
[2021-05-10] MEDS: DOXYCYCLINE 50 MG/5 ML ORAL SUSP PO SCH (08:39)
[2021-05-10] MEDS: AMLODIPINE 10 MG TAB PO SCH (08:39)
[2021-05-10] MEDS ORDERED: AMLO-211 PO (14:26)
[2021-05-10 14:44] VITALS: BP 125/57
== END 2021-05-10 16:43 | DRG 25 ==
LOC: ED 14:35 → 4EST 16:59 → ICU 04-29 11:02 → CCU 05-02 10:39 → 4EST 05-04 11:35
PROVIDERS: ADMIT Internal Medicine; ATTEND Internal Medicine
PROC: 009430Z Drainage of Intracranial Subdural Space with Drainage Device, Percutaneous Approach (ICD-10-PCS; principal; 2021-04-29 07:30)
DX: S06.5X0A Traumatic subdural hemorrhage without loss of consciousness, initial encounter (principal); G93.41 Metabolic encephalopathy; I48.20 Chronic atrial fibrillation, unspecified; D68.69 Other thrombophilia; E87.2 Acidosis; Z20.822 Contact with and (suspected) exposure to COVID-19; D53.9 Nutritional anemia, unspecified; E78.5 Hyperlipidemia, unspecified; F03.90 Unspecified dementia, unspecified severity, without behavioral disturbance, psychotic disturbance, mood disturbance, and anxiety; I10 Essential (primary) hypertension; Z96.652 Presence of left artificial knee joint; K21.9 Gastro-esophageal reflux disease without esophagitis; X58.XXXA Exposure to other specified factors, initial encounter; G93.9 Disorder of brain, unspecified; M10.9 Gout, unspecified; Z78.1 Physical restraint status; Z79.2 Long term (current) use of antibiotics; Z86.14 Personal history of Methicillin resistant Staphylococcus aureus infection; Z87.891 Personal history of nicotine dependence; Y93.89 Activity, other specified; Y92.89 Other specified places as the place of occurrence of the external cause; Y99.8 Other external cause status
CPT/HCPCS: 36415; 70450; 80047; 80048; 80053; 80061; 81001; 82607; 83036; 83735; 84100; 84443; 85025; 85610; 85730; 87081; 93005; C1713; C1729; G0378; J0171; J0690; J1100; J2405; J2704; J2710; J3010; J3480; U0005; J0330; J0360; J1630; J2060; J2270; J7040; U0003